=== PATIENT | female | born 1965 | race Caucasian/White ===

== ENCOUNTER 2019-12-04 11:41 | Emergency (ER) | payer OTHER ==
[~2019-12-04] VITALS: Ht 167.6 cm; Wt 77.1 kg
[2019-12-04 11:46] VITALS: BP_SYST 121
--- NOTE | 2019-12-04 12:12 | NUR ---
Patient to ER bed 03 to gown for evaluation. Side rails up.
--- NOTE | 2019-12-04 12:14 | NUR ---
Patient arrived in the ED c/o right foot pain s/p mechanical fall today. Denied any head injury or loss of consciousness. Denied any chest pain or shortness of breath. Denied any fevers, nausea, vomiting, or chills. Patient is alert and oriented x4, respirations even and unlabored, speaking in full sentences, ambulating with a steady gait. VSS, pain level 5/10. Informed of wait time. Instructed to notify ED staff for any changes in condition or worsening of symptoms. Patient verbalized understanding.
--- NOTE | 2019-12-04 12:32 | NUR ---
ER Dr. Sal at bedside examining patient.
--- NOTE | 2019-12-04 12:41 | NUR ---
X-ray done at bedside as ordered by Dr. Sal. Patient tolerated the procedure well.
--- NOTE | 2019-12-04 13:27 | NUR ---
ER Dr. Sal at bedside re-examining patient and giving discharge instructions.
[2019-12-04 13:36] VITALS: BP_SYST 121
--- NOTE | 2019-12-04 13:38 | NUR ---
Patient given written and verbal discharge instructions and verbalizes understanding. ER MD discussed with patient the results and treatment provided. Patient in stable condition. ID arm band removed. Rx of Tramadol given. Patient educated on pain management and to follow up with PMD. Pain Scale 0/10. Opportunity for questions provided and answered. Medication side effect fact sheet provided.
== END 2019-12-04 13:36 | disposition home or self-care (01) ==
LOC: SED 11:41
DX: S93.601A Unspecified sprain of right foot, initial encounter (principal); W18.39XA Other fall on same level, initial encounter; Y93.G3 Activity, cooking and baking; Y92.89 Other specified places as the place of occurrence of the external cause; Y99.8 Other external cause status
CPT/HCPCS: 99284

== ENCOUNTER 2021-02-01 18:25 | Emergency (ER) | payer OTHER ==
[~2021-02-01] VITALS: Ht 162.6 cm; Wt 81.6 kg
--- NOTE | 2021-02-01 18:26 | NUR ---
# 22 gauge angiocath placed to LAC. Use of asceptic technique. Opsite placed over site. Blood return noted. Blood for lab drawn from site. Flushed with 10 cc of normal saline. No evidence of infiltration noted. Patient tolerated well.
--- NOTE | 2021-02-01 18:26 | NUR ---
Patient to ER bed 6 to gown for evaluation. Side rails up.
--- NOTE | 2021-02-01 18:26 | NUR ---
ER Dr. Mendoza at bedside examining patient.
[2021-02-01 18:29] VITALS: BP_SYST 116
--- NOTE | 2021-02-01 18:30 | NUR ---
Pt came to ER after near syncopal episode when transferring from w/c to toilet. Pt did not fall, was not hypotensive, pt states she was not attempting to go to the restroom (no vasovagal), pt currently AO4, VSS, no distress noted, awaiting MD.
--- NOTE | 2021-02-01 18:35 | NUR ---
ER at bedside examining patient.
[2021-02-01 18:55] LABS: BASOPHILS % (AUTO) 0.4 % (0.0-2.0); EOSINOPHILS # (AUTO) 0.5 K/uL (0.0-0.4); EOSINOPHILS % (AUTO) 7.3 % (0.0-4.0); HEMATOCRIT 41.1 % (36-48); HEMOGLOBIN 13.6 g/dL (12.0-16.0); LYMPHOCYTES # (AUTO) 1.9 K/uL (1.0-5.5); MEAN CORPUSCULAR HEMOGLOBIN 28 pg (27-31); MEAN CORPUSCULAR HGB CONC 33 % (32-36); MEAN CORPUSCULAR VOLUME 84 fL (79.0-98.0); MONOCYTES # (AUTO) 0.6 K/uL (0.0-1.0); MONOCYTES % (AUTO) 8.7 % (1.7-9.3); NEUTROPHILS # (AUTO) 3.6 K/uL (1.8-7.7); NEUTROPHILS % (AUTO) 54.6 % (40.0-70.0); PLATELET COUNT (AUTO) 200 K/uL (130-430); RED BLOOD CELL COUNT(AUTO) 4.92 MIL/uL (4.2-6.2); WHITE BLOOD COUNT (AUTO) 6.5 K/uL (4.8-10.8)
--- NOTE | 2021-02-01 19:02 | NUR ---
Xray at bedside.
--- NOTE | 2021-02-01 19:07 | NUR ---
Endorsed bedside report to oncoming RN using SBAR approach for continuation of care.
[2021-02-01 19:08] LABS: CREATININE 0.72 mg/dL (0.55-1.30); POTASSIUM 3.5 mmol/L (3.5-5.1)
[2021-02-01 19:12] LABS: INR 1.1 (0.8-1.2)
[2021-02-01 19:14] LABS: ALBUMIN 3.5 g/dL (3.4-4.8); TOTAL BILIRUBIN 0.2 mg/dL (0.0-1.0)
--- NOTE | 2021-02-01 19:15 | NUR ---
Spoke with daughter on the phone regarding patient status and plan of care. All questions answered and education provided.
--- NOTE | 2021-02-01 20:00 | NUR ---
Voided in toilet with 2 nurse assist. Tanner well.
--- NOTE | 2021-02-01 20:35 | NUR ---
DR RAMON TALKED TO DAUGHTER.
[2021-02-01 22:15] VITALS: BP_SYST 125
--- NOTE | 2021-02-01 22:15 | NUR ---
Patient given written and verbal discharge instructions and verbalizes understanding. LAUREN RAMON MD discussed with patient the results and treatment provided. Patient in stable condition. ID arm band removed. IV catheter removed intact and dressing applied, no active bleeding. Patient educated on pain management and to follow up with PMD. Pain Scale . Opportunity for questions provided and answered. Medication side effect fact sheet provided.
== END 2021-02-01 22:15 | disposition home or self-care (01) ==
LOC: SED 18:25
DX: R55 Syncope and collapse (principal)
CPT/HCPCS: 36415; 70450-TC; 71045; 76376; 80053; 82550; 83605; 84484; 85025; 85610-TC; 85730-TC; 93005; 99285

== ENCOUNTER → 2021-02-20 | Outpatient (CLI) | payer OTHER | END | disposition home or self-care (01) | LOC: SMI 09:49 | DX: G31.89 Other specified degenerative diseases of nervous system (principal); R55 Syncope and collapse; R53.1 Weakness | CPT/HCPCS: 70544; 70551 ==

== ENCOUNTER 2021-03-29 15:26 | Emergency (ER) | payer MEDICARE, MEDICAID ==
[~2021-03-29] VITALS: Ht 162.6 cm; Wt 81.6 kg
[2021-03-29 15:35] VITALS: BP_SYST 112
--- NOTE | 2021-03-29 15:35 | NUR ---
Patient to ER bed 3 to gown for evaluation. Side rails up.
--- NOTE | 2021-03-29 15:36 | NUR ---
ER at bedside examining patient.
--- NOTE | 2021-03-29 15:40 | NUR ---
PT BIBA FROM HOME AFTER FALLING IN THE BATHROOM WHILE ATTEMPING TO TRANSFER SELF TO TOILET. PT STATES SHE IS WC BOUND X 10YEARS AND HAS HAD MS FOR 20+ YEARS. STATES HER LEFT FOOT IS IN PAIN, NO OBVIOUS DEFORMITY OR TRAUMA. PT IS AAOX4, V/S STABLE UPON ARRIVAL
--- NOTE | 2021-03-29 16:01 | NUR ---
PT PLACED ON BEDPAN PER REQUEST
[2021-03-29] MEDS ORDERED: IBUP-1969 PO (16:11)
[2021-03-29] MEDS ORDERED: HYDR-3917 PO (16:11)
[2021-03-29 16:27] VITALS: BP_SYST 124
--- NOTE | 2021-03-29 16:29 | NUR ---
Patient given written and verbal discharge instructions and verbalizes understanding. ER MD discussed with patient the results and treatment provided. Patient in stable condition. ID arm band removed. Rx of MOTRIN AND NORCO given. Patient educated on pain management and to follow up with PMD. Pain Scale 3/10. Opportunity for questions provided and answered. Medication side effect fact sheet provided.
== END 2021-03-29 16:29 | disposition home or self-care (01) ==
LOC: SED 15:26
DX: S93.402A Sprain of unspecified ligament of left ankle, initial encounter (principal); W18.39XA Other fall on same level, initial encounter; Y93.89 Activity, other specified; Y92.89 Other specified places as the place of occurrence of the external cause; Y99.8 Other external cause status
CPT/HCPCS: 99283

== ENCOUNTER 2021-04-11 14:12 | Emergency (ER) | payer OTHER, MEDICAID ==
[~2021-04-11] VITALS: Ht 170.2 cm; Wt 81.6 kg
[2021-04-11 14:12] VITALS: BP_SYST 101
[~2021-04-11 14:12] MED LIST: HYDR-3917 PO; IBUP-1969 PO
--- NOTE | 2021-04-11 14:12 | NUR ---
PT PLACED IN BED 3.
--- NOTE | 2021-04-11 14:13 | NUR ---
MD RAMON AT BEDSIDE ASSESSING PT.,
--- NOTE | 2021-04-11 14:21 | NUR ---
RN NOTES PT C/O OF NEAR SYNCOPE EPISODE TODAY WHILE GETTING UP FROM COUCH TO GET SOMETHING TO EAT. PT STATED SHE NEVER LOST CONCIOUSNESS AND NEVER FELL. PT IS STABLE , AWAKE , ORIENTED. HX OF MS.
[2021-04-11 14:42] LABS: BASOPHILS % (AUTO) 0.4 % (0.0-2.0); EOSINOPHILS # (AUTO) 0.3 K/uL (0.0-0.4); HEMOGLOBIN 13.4 g/dL (12.0-16.0); LYMPHOCYTES # (AUTO) 1.1 K/uL (1.0-5.5); LYMPHOCYTES % (AUTO) 19.7 % (20.5-51.5); MEAN CORPUSCULAR HEMOGLOBIN 28 pg (27-31); MEAN CORPUSCULAR HGB CONC 33 % (32-36); MEAN CORPUSCULAR VOLUME 85 fL (79.0-98.0); MONOCYTES # (AUTO) 0.4 K/uL (0.0-1.0); MONOCYTES % (AUTO) 7.4 % (1.7-9.3); NEUTROPHILS # (AUTO) 3.6 K/uL (1.8-7.7); NEUTROPHILS % (AUTO) 66.5 % (40.0-70.0); PLATELET COUNT (AUTO) 205 K/uL (130-430); RED BLOOD CELL COUNT(AUTO) 4.72 MIL/uL (4.2-6.2); RED CELL DISTRIBUTION WIDTH 13.6 % (9.0-15.0); WHITE BLOOD COUNT (AUTO) 5.4 K/uL (4.8-10.8)
[2021-04-11 14:49] LABS: ACETONE, SERUM NEGATIVE (NEGATIVE)
[2021-04-11 14:52] LABS: ANION GAP 9 (5-15); CALCIUM 8.5 mg/dL (8.4-11.0); CHLORIDE 107 mmol/L (98-107); CREATININE 0.65 mg/dL (0.55-1.30); GLUCOSE 114 mg/dL (70-99); SODIUM SERUM 142 mmol/L (136-145); UREA NITROGEN, BLOOD 9 mg/dL (8-21)
[2021-04-11 14:56] LABS: INR 1.1 (0.8-1.2); PROTHROMBIN TIME 11.6 SECS (9.5-12.5)
[2021-04-11 14:59] LABS: ALANINE AMINOTRANSFERASE 21 U/L (12-78); ALBUMIN 3.2 g/dL (3.4-4.8); ASPARTATE AMINOTRANSFERASE 13 U/L (10-37); TOTAL BILIRUBIN 0.3 mg/dL (0.0-1.0)
--- NOTE | 2021-04-11 15:23 | NUR ---
RN HAS HELP PT REPOSITION IN BED. WARM BLANKETS GIVEN. PT IS RESTING, NO DISTRESS OF ANY KIND.
--- NOTE | 2021-04-11 15:40 | NUR ---
ALL LABS RESULTS ARE BACK AND NORMAL. X RAYS NORMAL. MD RAMON PREPARE FOR DC HOME. RN HAS ASKED PT TO CALL HE FAMILY FOR P/U.
[2021-04-11 15:43] VITALS: BP_SYST 111
--- NOTE | 2021-04-11 15:45 | NUR ---
Patient given written and verbal discharge instructions and verbalizes understanding. ER MD discussed with patient the results and treatment provided. Patient in stable condition. ID arm band removed. Patient educated on pain management and to follow up with PMD. Pain Scale 0/10 []. Opportunity for questions provided and answered. Medication side effect fact sheet provided.
== END 2021-04-11 15:45 | disposition home or self-care (01) ==
LOC: SED 14:12
DX: R55 Syncope and collapse (principal); G35 Multiple sclerosis; Z79.899 Other long term (current) drug therapy
CPT/HCPCS: 36415; 71045; 80053; 82009; 82550; 83605; 84484; 85025; 85610-TC; 85730-TC; 93005; 99285

== ENCOUNTER 2021-08-27 15:17 | Emergency (ER) | payer BC, MEDICAID ==
[~2021-08-27] VITALS: Ht 162.6 cm; Wt 90.7 kg
[2021-08-27 15:17] VITALS: BP_SYST 113
[~2021-08-27 15:17] MED LIST changes: +BACL20TA PO; +ESCI10TA PO; +LIP20 PO
--- NOTE | 2021-08-27 15:17 | NUR ---
BROUGHT IN BY [facility], PLACED IN BED #2 AND TRIAGED. REPORT GIVEN TO OSCAR
--- NOTE | 2021-08-27 15:19 | NUR ---
ER at bedside examining patient.
--- NOTE | 2021-08-27 15:22 | NUR ---
pt. bib ACLS post syncope episode at home, pt. states she was walking to get some dates to eat and her daughter yelled to her from upstairs that she did not look well and had her sit as she called 911, pt. has full recollection of entire event, denies any pain, states feels weak, weakness is her only complaint, was reported by EMS she was hypotensive, BP on arrival 113/43 P=68.
[2021-08-27] MEDS ORDERED: NACL 0.9% 1,000 ML IV ONE (15:30)
--- NOTE | 2021-08-27 15:41 | NUR ---
radiology at bedside for chest xray
[2021-08-27 16:02] LABS: BASOPHILS % (AUTO) 0.6 % (0.0-2.0); EOSINOPHILS # (AUTO) 0.3 K/uL (0.0-0.4); EOSINOPHILS % (AUTO) 7.5 % (0.0-4.0); HEMATOCRIT 40.8 % (36-48); HEMOGLOBIN 13.5 g/dL (12.0-16.0); LYMPHOCYTES # (AUTO) 1.7 K/uL (1.0-5.5); LYMPHOCYTES % (AUTO) 35.7 % (20.5-51.5); MEAN CORPUSCULAR HEMOGLOBIN 28 pg (27-31); MEAN CORPUSCULAR HGB CONC 33 % (32-36); MEAN CORPUSCULAR VOLUME 84 fL (79.0-98.0); MONOCYTES # (AUTO) 0.3 K/uL (0.0-1.0); MONOCYTES % (AUTO) 7.5 % (1.7-9.3); NEUTROPHILS # (AUTO) 2.2 K/uL (1.8-7.7); NEUTROPHILS % (AUTO) 48.7 % (40.0-70.0); PLATELET COUNT (AUTO) 219 K/uL (130-430); RED BLOOD CELL COUNT(AUTO) 4.86 MIL/uL (4.2-6.2); RED CELL DISTRIBUTION WIDTH 14.9 % (9.0-15.0); WHITE BLOOD COUNT (AUTO) 4.6 K/uL (4.8-10.8)
[2021-08-27 16:19] LABS: CALCIUM 9.6 mg/dL (8.4-11.0); CREATININE 0.71 mg/dL (0.55-1.30); POTASSIUM 3.8 mmol/L (3.5-5.1)
[2021-08-27 16:32] LABS: ALBUMIN 3.6 g/dL (3.4-4.8); TOTAL BILIRUBIN 0.3 mg/dL (0.0-1.0)
--- NOTE | 2021-08-27 18:48 | NUR ---
pt. was incontinent of urine, pericare done, diaper given for transfer home, IV dc'd, pt. signed discharge paper work waiting for daughter to bring wheelchair for ride home, dinner given per request
[2021-08-27 19:06] VITALS: BP_SYST 116
--- NOTE | 2021-08-27 19:07 | NUR ---
Patient given written and verbal discharge instructions and verbalizes understanding. Dr. Martinez discussed with patient the results and treatment provided. Patient in stable condition. ID arm band removed. IV catheter removed intact and dressing applied, no active bleeding. Patient educated to follow up with PMD. Pain Scale 0. Opportunity for questions provided and answered.
== END 2021-08-27 19:07 | disposition home or self-care (01) ==
LOC: SED 15:17
DX: R55 Syncope and collapse (principal); Z79.899 Other long term (current) drug therapy
CPT/HCPCS: 36415; 71045; 80053; 83605; 84484; 85025; 87040; 93005; 96360; 99285; J7030

== ENCOUNTER 2022-07-29 16:00 | Inpatient (IN) | payer BC, MEDICAID ==
[~2022-07-29] VITALS: Ht 170.2 cm; Wt 81.6 kg
[2022-07-29 16:03] VITALS: BP_SYST 127
--- NOTE | 2022-07-29 16:03 | NUR ---
Placed in room 07 . Placed on cardiac rn, blood pressure machine and pulse oximeter. To gown for exam. Side rails up.
--- NOTE | 2022-07-29 16:26 | NUR ---
PT BIBA AWAKE AND ALERT AOX4. PT C/O COUGH FLU LIKE SYMPTOM FOR X2 DAYS. PT STATES FEELING GENERALIZED WEAKNESS. NO SOB OR DISTRESS. PT DENIES VOMITING AND DIAHREA, BUT SLIGHTLY NEAUOS. PT HAS HX OF MS, AND NON ANBULATORY.
--- NOTE | 2022-07-29 16:29 | NUR ---
MD DR KAPOOR AT BEDSIDE
[2022-07-29 16:44] LABS: BILIRUBIN,URINE NEGATIVE (NEGATIVE); BLOOD, URINE 2+ (NEGATIVE); CLARITY/URINE SL CLOUDY (CLEAR); COLOR,URINE YELLOW (YELLOW); GLUCOSE,URINE NEGATIVE (NEGATIVE); KETONES,URINE NEGATIVE (NEGATIVE); LEUKOCYTE ESTERASE ,URINE 1+ (NEGATIVE); NITRITE, URINE POSITIVE (NEGATIVE); PH,URINE 8.5 (5.0-8.0); PROTEIN URINE NEGATIVE (NEGATIVE); UROBILINOGEN,URINE 0.2 (0.2-1.0)
[2022-07-29 16:49] LABS: BACTERIA,URINE FEW /HPF (None Seen); MUCUS,URINE None Seen /LPF (None Seen)
[2022-07-29 16:56] LABS: BASOPHILS % (AUTO) 0.4 % (0.0-2.0); EOSINOPHILS % (AUTO) 0.4 % (0.0-4.0); HEMATOCRIT 38.5 % (36-48); HEMOGLOBIN 12.9 g/dL (12.0-16.0); LYMPHOCYTES # (AUTO) 0.6 K/uL (1.0-5.5); MEAN CORPUSCULAR HEMOGLOBIN 28 pg (27-31); MEAN CORPUSCULAR HGB CONC 33 % (32-36); MEAN CORPUSCULAR VOLUME 83 fL (79.0-98.0); MONOCYTES # (AUTO) 0.8 K/uL (0.0-1.0); MONOCYTES % (AUTO) 11.4 % (1.7-9.3); NEUTROPHILS # (AUTO) 5.6 K/uL (1.8-7.7); NEUTROPHILS % (AUTO) 78.8 % (40.0-70.0); PLATELET COUNT (AUTO) 192 K/uL (130-430); RED BLOOD CELL COUNT(AUTO) 4.61 MIL/uL (4.2-6.2); RED CELL DISTRIBUTION WIDTH 14.2 % (9.0-15.0); WHITE BLOOD COUNT (AUTO) 7.1 K/uL (4.8-10.8)
[2022-07-29] MEDS ORDERED: cefTRIAXone 1 GM IVPB PREMIX 50 ML IV ONE (17:00)
[2022-07-29 17:12] LABS: ANION GAP 6 (5-15); CALCIUM 8.9 mg/dL (8.4-11.0); CHLORIDE 104 mmol/L (98-107); CREATININE 0.57 mg/dL (0.55-1.30); GLUCOSE 101 mg/dL (70-99); UREA NITROGEN, BLOOD 9 mg/dL (8-21)
[2022-07-29 17:21] LABS: ALANINE AMINOTRANSFERASE 17 U/L (12-78); ALBUMIN 3.5 g/dL (3.4-4.8); ASPARTATE AMINOTRANSFERASE 12 U/L (10-37); TOTAL BILIRUBIN 0.3 mg/dL (0.0-1.0)
[2022-07-29 17:23] LABS: GFR AFRICAN AMERICAN 140 mL/min (>90)
--- NOTE | 2022-07-29 17:43 | NUR ---
Admit bed requested Patient will be admitted to care of . Admitted to M/S unit. Diagnosis UTI Inpatient (Yes or No) Y Observation (Yes or No) N Orientation concerns or request close to nursing station (Yes or No) N Covid Status NEG On vent or bipap N Isolation requirements N Needs a sitter N From Home (Yes or if No enter name of facility) Y Requires Dialysis (Yes or No) N Med Rec Completed (Yes of No) Y
[2022-07-29] MEDS: NACL 0.9% 1,000 ML IV SCH (17:49)
--- NOTE | 2022-07-29 17:52 | NUR ---
Medication reconciliation completed with information provided by PATIENT AT BEDSIDE. Any prior medication reconciliation on file was reviewed and corrected.
[2022-07-29 18:20] VITALS: BP_SYST 107
--- NOTE | 2022-07-29 18:20 | NUR ---
ADMISSION: The patient, GABY SEQUEIRA, 56 y/o, F admitted by JUJU LOPEZ DO, was given written information regarding hospital policies, unit procedures and contact persons. Oriented to call light.Routine vital signs taken,afebrile.
--- NOTE | 2022-07-29 18:33 | NUR ---
Patient will be admitted to care of DR LOPEZ. Admitted to [facility] unit. Will go to room 125A. Belongings list completed. Complete and up to date summary report printed. SBAR report to be given at bedside with opportunity for questions.
[2022-07-29] MEDS ORDERED: DOCUSATE SODIUM 100 MG CAPSULE PO PRN (19:15)
[2022-07-29] MEDS ORDERED: LORazepam 2 MG/ML VIAL IVP PRN (19:15)
[2022-07-29] MEDS ORDERED: HYDROcodone/ACETAMIN 5-325 MG TAB (NORCO/ VICODIN) PO PRN (19:15)
[2022-07-29] MEDS ORDERED: POTASSIUM CHLORIDE 20 MEQ TAB.PRT.SR PO PRN (19:15)
[2022-07-29] MEDS ORDERED: MAGNESIUM SULFATE 50 ML IV PRN (19:15)
[2022-07-29] MEDS ORDERED: ACETAMINOPHEN 325 MG TABLET PO PRN ×2 (19:15→19:30)
[2022-07-29] MEDS ORDERED: MUPIROCIN 2% TOPICAL OINTMENT 22 GM NS PRN (19:15)
[2022-07-29] MEDS ORDERED: ONDANSETRON HCL 4 MG/2 ML VIAL IVP PRN (19:15)
--- NOTE | 2022-07-29 19:29 | NUR ---
END OF SHIFT: ENDORSED TO NIGHT NURSE RUSTY.NO ACUTE DISTRESS.
[2022-07-29 20:00] VITALS: BP_SYST 118
--- NOTE | 2022-07-29 20:30 | NUR ---
Opening Patient resting in bed, unlabored breathing on room air. No complaint of pain. Given some jello and juice. IV fluids infusing per order.
[2022-07-30] VITALS: BP_SYST 143
--- NOTE | 2022-07-30 04:25 | NUR ---
Assisted patient with repositioning with pillow support. Patient complained of discomfort but refused any pain medication at this time. Incontinence care provided and linens changed. Call light in reach.
--- NOTE | 2022-07-30 07:11 | NUR ---
Patient refused labs this morning.
[2022-07-30] MEDS: NACL 0.9% 1,000 ML IV SCH ×2 (08:03→22:21)
[2022-07-30] MEDS: ATORVASTATIN 20 MG TABLET PO SCH (08:19)
[2022-07-30 08:20] VITALS: BP_SYST 134
--- NOTE | 2022-07-30 08:20 | NUR ---
Scheduled medication given per order. Patient repositioned; stable at this time, resting comfortably in bed.
[2022-07-30] MEDS ORDERED: BACLOFEN 10 MG TABLET PO SCH ×2 (09:00→12:07)
[2022-07-30] MEDS ORDERED: ESCITALOPRAM OXALATE 10 MG TABLET PO SCH (09:00)
[2022-07-30] MEDS ORDERED: CITALOPRAM HYDROBROMIDE 20 MG TABLET PO SCH ×2 (09:00→12:08)
--- NOTE | 2022-07-30 09:56 | NUR ---
Discharge Planning: GOLDY faxed pt referral to [facility] [phone] GOLDY to follow up Addendum: 07/30/22 at 1427 by Keiry Lewis DP Daughter of patient would her to be placed at [facility]. GOLDY made CM aware.
[2022-07-30] MEDS ORDERED: cefTRIAXone 1 GM in D5W 50 ML IV SCH ×2 (10:00→17:00)
--- NOTE | 2022-07-30 11:00 | NUR ---
Patient resting comfortably in bed with Dr. Oliva at bedside. Patient stable.
--- NOTE | 2022-07-30 11:11 | NUR ---
CONSULTATION PAGED REASON FOR CONSULTATION:MULTIPLE SCLEROSIS WAS CONSULT CALLED?Y PERSON WHO WAS NOTIFIED:TEXT MESSAGED ARTURO BAUTISTA CONSULTING PHYSICIAN:ARTURO BAUTISTA AUTO RESEARCH ENGINEER SPECIALTY:NEURO AUTO RESEARCH ENGINEER PHONE NUMBER:[phone] REQUESTING PHYSICIAN:CHADWICK COHEN
--- NOTE | 2022-07-30 11:12 | NUR ---
Ordered medication given. Gown and chux pads changed. Patient stable at this time.
[2022-07-30 12:00] VITALS: BP_SYST 123
[2022-07-30] MEDS ORDERED: BACL10TA PO (12:06)
[2022-07-30] MEDS ORDERED: ESCI20TA38 PO (12:06)
--- NOTE | 2022-07-30 14:13 | NUR ---
Spoke w/ patient's daughter @ [phone]. She stated her mother is having an exacerbation of her MS. The daughter is her rn complex care, she is currently unable to care for her mother and would like her to be placed at [facility] until she is feeling better and the daughter is able to care for her at home. I explained that the MD would need to see her mother and determine if she has medical necessity for SNF placement. We will let her know the MD's plan for her mother's DC.
[2022-07-30 15:29] LABS: BASOPHILS % (AUTO) 0.2 % (0.0-2.0); EOSINOPHILS % (AUTO) 0.4 % (0.0-4.0); HEMATOCRIT 35.8 % (36-48); HEMOGLOBIN 12.3 g/dL (12.0-16.0); LYMPHOCYTES # (AUTO) 0.9 K/uL (1.0-5.5); LYMPHOCYTES % (AUTO) 12.8 % (20.5-51.5); MEAN CORPUSCULAR HEMOGLOBIN 28 pg (27-31); MEAN CORPUSCULAR HGB CONC 34 % (32-36); MEAN CORPUSCULAR VOLUME 82 fL (79.0-98.0); MONOCYTES # (AUTO) 0.9 K/uL (0.0-1.0); MONOCYTES % (AUTO) 12.9 % (1.7-9.3); NEUTROPHILS # (AUTO) 5.2 K/uL (1.8-7.7); NEUTROPHILS % (AUTO) 73.7 % (40.0-70.0); PLATELET COUNT (AUTO) 176 K/uL (130-430); RED BLOOD CELL COUNT(AUTO) 4.34 MIL/uL (4.2-6.2); RED CELL DISTRIBUTION WIDTH 14.2 % (9.0-15.0)
[2022-07-30 15:45] LABS: CREATININE 0.54 mg/dL (0.55-1.30)
[2022-07-30] MEDS: BACLOFEN 10 MG TABLET PO SCH ×2 (15:49→22:59)
--- NOTE | 2022-07-30 15:51 | NUR ---
Scheduled medication given per order. Patient stable with daughter, Bryce at bedside.
[2022-07-30 16:00] VITALS: BP_SYST 120
--- NOTE | 2022-07-30 17:30 | NUR ---
Scheduled IV abx given per order. Patient stable; resting comfortably in bed with Dr. Aline Ashby at bedside.
--- NOTE | 2022-07-30 18:50 | NUR ---
Patient stable throughout shift.
[2022-07-30 19:00] VITALS: BP_SYST 116; BP_SYST 120
--- NOTE | 2022-07-30 19:15 | NUR ---
change of shift.pt.presents quiescent affect;calm,resting.pt.presents lower extremity weakness.pt.ordered bedrest activity pt.presents iv access location lt.forearm.general status stable.respiratory status stable;unlabored@room air.call light/telephone placed w/in access of the pt.
--- NOTE | 2022-07-30 19:25 | NUR ---
OPENING NOTE PT IS LYING IN BED WITH EYES. NO APPARENT SIGNS OF DISTRESS NOTED AT THIS TIME. BED IN LOWEST POSITION WITH FALL AND SAFETY PRECAUTIONS IN PLACE. CALL LIGHT IS WITHIN REACH. IV FLUIDS RUNNING ORDERED. ALL NEEDS MET AT THIS TIME
--- NOTE | 2022-07-30 20:00 | NUR ---
pt.assessed.v/s assessed values wnl.no c/o pain,nausea.pt.apprised that snacks/beverages are available w/in the shift.no requests posited this hour.pt.repositioned.iv access intact.call light/telephone w/in access of the pt.
--- NOTE | 2022-07-30 21:00 | NUR ---
2100p medications administered.pt.capable to ingest the po medications w/out difficulty.no c/o pain,nausea.no request posited@this hour.
--- NOTE | 2022-07-30 22:00 | NUR ---
pt.assessed.pt.quiescent;calm.no c/o pain,nausea.no requests posited@this hour.iv access intact.pt.repositioned. call light/telephone w/in access of the pt.
[2022-07-30] MEDS: ZOLPIDEM TARTRATE 5 MG TABLET PO PRN (23:00)
[2022-07-31] VITALS: BP_SYST 113
--- NOTE | 2022-07-31 | NUR ---
pt.assessed.v/s assessed values wnl.no c/o pain,nausea.iv access intact.pt.repositioned.call light/telephone placed w/in access of the pt.
--- NOTE | 2022-07-31 02:00 | NUR ---
pt.assESSED.pt.quiescent;somnolent.per flacc pain mgx pt.absent facial grimaCES/BODY PosTUrING.IV ACcEss IntaCT IV FlUIDS INFuSiNG.PT.ASSEssed FOr cleanliess.pt.REpositIONED.CALl lIGHT/telephone placed w/in access OF THe PT.
[2022-07-31] MEDS: NACL 0.9% 1,000 ML IV SCH (03:30)
--- NOTE | 2022-07-31 04:00 | NUR ---
pt.assessed.pt.quiescent;somnolent.per flacc pain mgx pt.absent facial grimaces/body posturing.pt.assessed for cleanliness.pt.repositioned.call light/telephone placed w/in access of the pt.
--- NOTE | 2022-07-31 04:20 | NUR ---
ROUNDS PT LYING IN BED WITH EYES CLOSED. NO APPARENT DISTRESS NOTED AT THIS TIME. BED IN LOWEST POSITION WITH FALL AND SAFETY PRECAUTIONS IN PLACE. CALL LIGHT WITHIN REACH. IV FLUIDS RUNNING ORDERED.
--- NOTE | 2022-07-31 06:05 | NUR ---
pt.assessed.pt.quiescent;somnolent.per flacc pain mgx pt.absent facial grimaces/body posturing.pt.assessed for cleanliness.pt.repositioned.call light/telephone placed w/in access of the pt.
--- NOTE | 2022-07-31 06:38 | NUR ---
CLOSING NOTE PT IS LYING IN BED WITH EYES CLOSED. NO APPARENT SIGNS OF DISTRESS NOTED AT HIS TIME. BED IN LOWEST POSITION WITH FALL AND SAFETY PRECAUTIONS IN PLACE. CALL LIGHT WITHIN REACH. PETERS DRAINING TO GRAVITY. IV FLUIDS RUNNING ORDERED.
[2022-07-31 07:13] LABS: CREATININE 0.48 mg/dL (0.55-1.30)
[2022-07-31 07:16] LABS: BASOPHILS % (AUTO) 0.4 % (0.0-2.0); EOSINOPHILS # (AUTO) 0.2 K/uL (0.0-0.4); EOSINOPHILS % (AUTO) 4.3 % (0.0-4.0); HEMATOCRIT 36.3 % (36-48); HEMOGLOBIN 12.2 g/dL (12.0-16.0); LYMPHOCYTES # (AUTO) 1.1 K/uL (1.0-5.5); LYMPHOCYTES % (AUTO) 23.3 % (20.5-51.5); MEAN CORPUSCULAR HEMOGLOBIN 28 pg (27-31); MEAN CORPUSCULAR HGB CONC 34 % (32-36); MEAN CORPUSCULAR VOLUME 83 fL (79.0-98.0); MONOCYTES # (AUTO) 0.7 K/uL (0.0-1.0); MONOCYTES % (AUTO) 15.3 % (1.7-9.3); NEUTROPHILS # (AUTO) 2.7 K/uL (1.8-7.7); NEUTROPHILS % (AUTO) 56.7 % (40.0-70.0); PLATELET COUNT (AUTO) 173 K/uL (130-430); RED BLOOD CELL COUNT(AUTO) 4.39 MIL/uL (4.2-6.2); RED CELL DISTRIBUTION WIDTH 14.1 % (9.0-15.0); WHITE BLOOD COUNT (AUTO) 4.7 K/uL (4.8-10.8)
[2022-07-31 07:35] VITALS: BP_SYST 103
--- NOTE | 2022-07-31 07:35 | NUR ---
OPENING NOTE Patient in bed resting. No pain, no SOB, no distress noted at this time. IV to Left hand 22G patent and on infusion pump. Patient is A/O x 4 East [place]orese speaking. Patient has periwick which is draining yellow urine. All needs met, bed is locked in lowest position, call light within reach. Will continue to monitor.
[2022-07-31] MEDS: CITALOPRAM HYDROBROMIDE 20 MG TABLET PO SCH (08:27)
[2022-07-31] MEDS: BACLOFEN 10 MG TABLET PO SCH ×3 (08:27→22:38)
[2022-07-31] MEDS: ATORVASTATIN 20 MG TABLET PO SCH (08:27)
--- NOTE | 2022-07-31 10:37 | NUR ---
Pt refused PT eval today.
--- NOTE | 2022-07-31 12:10 | NUR ---
Rounds Patient in bed resting, MD Rangel at bedside. No pain, no SOB, no distress noted at this time. All needs met, bed is locked in lowest position, call light within reach. Will continue to monitor.
[2022-07-31 14:11] VITALS: BP_SYST 127
--- NOTE | 2022-07-31 17:09 | NUR ---
Patient's IV became dislodged and nurse tried twice for access. Patient then stated that she does not want to be poked further and wishes to not have IV access. Placed a call to MD Rangel to inform him and to see if he wants patient to lara atb to PO. MD changed orders, which were carried out.
[2022-07-31 18:32] VITALS: BP_SYST 111
--- NOTE | 2022-07-31 18:54 | NUR ---
CLOSING NOTE Patient in bed resting. No pain, no SOB, no distress noted at this time. IV to Left hand 22G patent and on infusion pump. Patient is A/O x 4 Spanish speaking. Patient has periwick which is draining yellow urine. All needs met, bed is locked in lowest position, call light within reach. Will endorse to nightshift nurse.
[2022-07-31 20:00] VITALS: BP_SYST 117
[2022-07-31] MEDS: ZOLPIDEM TARTRATE 5 MG TABLET PO PRN (22:38)
[2022-07-31] MEDS: cephALEXin 500 MG CAPSULE PO SCH (22:38)
[2022-08-01 00:40] VITALS: BP_SYST 119
[2022-08-01 07:55] LABS: BASOPHILS % (AUTO) 0.5 % (0.0-2.0); EOSINOPHILS # (AUTO) 0.5 K/uL (0.0-0.4); EOSINOPHILS % (AUTO) 10.9 % (0.0-4.0); HEMATOCRIT 36.6 % (36-48); HEMOGLOBIN 12.4 g/dL (12.0-16.0); LYMPHOCYTES # (AUTO) 1.3 K/uL (1.0-5.5); LYMPHOCYTES % (AUTO) 28.6 % (20.5-51.5); MEAN CORPUSCULAR HEMOGLOBIN 28 pg (27-31); MEAN CORPUSCULAR HGB CONC 34 % (32-36); MEAN CORPUSCULAR VOLUME 83 fL (79.0-98.0); MONOCYTES # (AUTO) 0.7 K/uL (0.0-1.0); MONOCYTES % (AUTO) 14.9 % (1.7-9.3); NEUTROPHILS % (AUTO) 45.1 % (40.0-70.0); PLATELET COUNT (AUTO) 201 K/uL (130-430); RED BLOOD CELL COUNT(AUTO) 4.43 MIL/uL (4.2-6.2); WHITE BLOOD COUNT (AUTO) 4.5 K/uL (4.8-10.8)
[2022-08-01 08:37] LABS: CALCIUM 8.4 mg/dL (8.4-11.0); CREATININE 0.51 mg/dL (0.55-1.30)
[2022-08-01 08:51] VITALS: BP_SYST 116
[2022-08-01] MEDS: BACLOFEN 10 MG TABLET PO SCH ×3 (08:53→22:03)
[2022-08-01] MEDS: cephALEXin 500 MG CAPSULE PO SCH ×2 (08:53→22:03)
[2022-08-01] MEDS: ATORVASTATIN 20 MG TABLET PO SCH (08:53)
[2022-08-01] MEDS: CITALOPRAM HYDROBROMIDE 20 MG TABLET PO SCH (08:53)
[2022-08-01] MEDS ORDERED: CEPH-548 PO (09:17)
[2022-08-01 11:24] VITALS: BP_SYST 125
[2022-08-01 15:32] VITALS: BP_SYST 122
[2022-08-01 20:51] VITALS: BP_SYST 112
[2022-08-02 00:10] VITALS: BP_SYST 110
[2022-08-02 07:51] LABS: BASOPHILS % (AUTO) 0.7 % (0.0-2.0); EOSINOPHILS # (AUTO) 0.6 K/uL (0.0-0.4); EOSINOPHILS % (AUTO) 11.3 % (0.0-4.0); HEMATOCRIT 36.8 % (36-48); HEMOGLOBIN 12.5 g/dL (12.0-16.0); LYMPHOCYTES # (AUTO) 1.3 K/uL (1.0-5.5); LYMPHOCYTES % (AUTO) 27.2 % (20.5-51.5); MEAN CORPUSCULAR HEMOGLOBIN 28 pg (27-31); MEAN CORPUSCULAR HGB CONC 34 % (32-36); MEAN CORPUSCULAR VOLUME 82 fL (79.0-98.0); MONOCYTES # (AUTO) 0.6 K/uL (0.0-1.0); MONOCYTES % (AUTO) 12.9 % (1.7-9.3); NEUTROPHILS # (AUTO) 2.4 K/uL (1.8-7.7); NEUTROPHILS % (AUTO) 47.9 % (40.0-70.0); PLATELET COUNT (AUTO) 231 K/uL (130-430); RED BLOOD CELL COUNT(AUTO) 4.47 MIL/uL (4.2-6.2); RED CELL DISTRIBUTION WIDTH 13.6 % (9.0-15.0); WHITE BLOOD COUNT (AUTO) 4.9 K/uL (4.8-10.8)
[2022-08-02 08:24] LABS: CALCIUM 8.8 mg/dL (8.4-11.0); CREATININE 0.52 mg/dL (0.55-1.30)
[2022-08-02] MEDS: cephALEXin 500 MG CAPSULE PO SCH ×2 (09:14→20:54)
[2022-08-02] MEDS: BACLOFEN 10 MG TABLET PO SCH ×3 (09:15→20:54)
[2022-08-02] MEDS: ATORVASTATIN 20 MG TABLET PO SCH (09:15)
[2022-08-02 09:16] VITALS: BP_SYST 133
[2022-08-02] MEDS: CITALOPRAM HYDROBROMIDE 20 MG TABLET PO SCH (09:16)
--- NOTE | 2022-08-02 09:40 | NUR ---
Discharge Planning: DCP faxed pt referral for SNF to [facility] [phone], family request [facility] patient has been there before. DCP to follow up Addendum: 08/02/22 at 1553 by Keiry Lewis [phone] pending auth from YOANNA Montes.
[2022-08-02 16:40] VITALS: BP_SYST 112
[2022-08-02 18:58] VITALS: BP_SYST 112
[2022-08-02 20:55] VITALS: BP_SYST 133
--- NOTE | 2022-08-02 21:31 | NUR ---
Patient is discharged to home via private vehicle. Daughter picked her up. Patient's alert, oriented, and no respiratory distress noted. Discharged instruction is given with Home Health phone number. Patient's aware that [facility] will contact her for start of care. Phone number for [facility] provided to the patient. Patient's vitals are stable, patient denies any pain or discomfort.
--- NOTE | 2022-08-03 12:03 | NUR ---
Discharge Planning: DCP faxed pt referral to [facility] P#[phone], DCP spoke with Hien and care would resume.
== END 2022-08-02 23:23 | disposition home health service (06) | DRG 58 ==
LOC: SED 16:00 → SMU 17:42
PROVIDERS: ADMIT Internal Medicine; ATTEND Internal Medicine
DX: G35 Multiple sclerosis (principal); R53.2 Functional quadriplegia; N39.0 Urinary tract infection, site not specified; E78.00 Pure hypercholesterolemia, unspecified; E78.5 Hyperlipidemia, unspecified; Z20.822 Contact with and (suspected) exposure to COVID-19; R53.81 Other malaise; F32.A Depression, unspecified; Z99.3 Dependence on wheelchair
CPT/HCPCS: 36415; 71045; 80048; 80053; 80061; 81000; 83036; 83605; 83735; 84484; 85025; 87040; 87086; 93005; 96365; 97163-GP; 99285; J0696; J7030; J7060

== ENCOUNTER 2023-09-24 10:02 | Inpatient (IN) | payer BC, MEDICAID ==
[~2023-09-24] VITALS: Ht 152.4 cm; Wt 90.7 kg
[~2023-09-24 10:02] MED LIST changes: +BACL10TA PO; -BACL20TA PO; +CEPH-548 PO; -ESCI10TA PO; +ESCI20TA38 PO; -HYDR-3917 PO; -IBUP-1969 PO
[2023-09-24 10:03] VITALS: BP_SYST 130; PULSE 64; RESP 18; TEMP 97.4; O2SAT 95
[2023-09-24] MEDS ORDERED: NACL 0.9% 1,000 ML IV ONE (10:15)
[2023-09-24 10:40] LABS: BASOPHILS % (AUTO) 0.3 % (0.0-2.0); EOSINOPHILS # (AUTO) 0.1 K/uL (0.0-0.4); EOSINOPHILS % (AUTO) 1.2 % (0.0-4.0); HEMATOCRIT 38.8 % (36-48); HEMOGLOBIN 12.8 g/dL (12.0-16.0); LYMPHOCYTES # (AUTO) 0.5 K/uL (1.0-5.5); LYMPHOCYTES % (AUTO) 8.9 % (20.5-51.5); MEAN CORPUSCULAR HEMOGLOBIN 27 pg (27-31); MEAN CORPUSCULAR HGB CONC 33 % (32-36); MEAN CORPUSCULAR VOLUME 82 fL (79.0-98.0); MONOCYTES # (AUTO) 0.8 K/uL (0.0-1.0); MONOCYTES % (AUTO) 13.9 % (1.7-9.3); NEUTROPHILS # (AUTO) 4.1 K/uL (1.8-7.7); NEUTROPHILS % (AUTO) 75.7 % (40.0-70.0); PLATELET COUNT (AUTO) 205 K/uL (130-430); RED BLOOD CELL COUNT(AUTO) 4.74 MIL/uL (4.2-6.2); RED CELL DISTRIBUTION WIDTH 14.6 % (9.0-15.0); WHITE BLOOD COUNT (AUTO) 5.4 K/uL (4.8-10.8)
[2023-09-24 11:06] LABS: ANION GAP 7 (5-15); CARBON DIOXIDE 27 mmol/L (23-29); CHLORIDE 102 mmol/L (98-107); CREATININE 0.58 mg/dL (0.55-1.30); GFR AFRICAN AMERICAN 136 mL/min (>90); GLUCOSE 121 mg/dL (74-106); POTASSIUM 3.6 mmol/L (3.5-5.1); SODIUM SERUM 136 mmol/L (136-145); UREA NITROGEN, BLOOD 9 mg/dL (8-21)
[2023-09-24 11:07] LABS: GFR NON AFRICAN-AMERICAN 113 mL/min (>90)
[2023-09-24 13:46] LABS: INFLUENZA TYPE A Negative (NEGATIVE); INFLUENZA TYPE B NEGATIVE (NEGATIVE)
[2023-09-24 14:00] VITALS: PULSE 64; O2SAT 99
[2023-09-24] MEDS ORDERED: HYDROcodone/ACETAMIN 5-325 MG TAB (NORCO/ VICODIN) PO PRN (14:00)
[2023-09-24] MEDS ORDERED: ACETAMINOPHEN 325 MG TABLET PO PRN ×2 (14:00→14:15)
[2023-09-24] MEDS ORDERED: ONDANSETRON HCL 4 MG/2 ML VIAL IVP PRN (14:00)
[2023-09-24 14:01] LABS: BILIRUBIN,URINE NEGATIVE (NEGATIVE); BLOOD, URINE 2+ (NEGATIVE); CLARITY/URINE CLOUDY (CLEAR); COLOR,URINE YELLOW (YELLOW); GLUCOSE,URINE NEGATIVE (NEGATIVE); KETONES,URINE NEGATIVE (NEGATIVE); LEUKOCYTE ESTERASE ,URINE TRACE (NEGATIVE); NITRITE, URINE NEGATIVE (NEGATIVE); PH,URINE 7.5 (5.0-8.0); PROTEIN URINE NEGATIVE (NEGATIVE); UROBILINOGEN,URINE 0.2 (0.2-1.0)
[2023-09-24 14:14] LABS: BACTERIA,URINE FEW /HPF (None Seen); URINE AMORPHOUS PHOSPHATES 1+ /HPF (None Seen)
[2023-09-24] MEDS ORDERED: ONDANSETRON HCL 4 MG/2 ML VIAL IVP ONE (14:15)
[2023-09-24] MEDS ORDERED: NON-FORMULARY MEDICATION (Escitalopram Oxalate 20 MG) PO SCH (14:15)
[2023-09-24] MEDS ORDERED: ASCORBIC ACID 500 MG TABLET PO ONE (14:15)
[2023-09-24] MEDS ORDERED: KETOROLAC TROMETHAMINE 30 MG VIAL IVP ONE (14:15)
[2023-09-24] MEDS ORDERED: DEXAMETHASONE SOD PHOSPHATE 4 MG/ML VIAL IVP ONE (14:15)
[2023-09-24] MEDS ORDERED: MORPHINE 2 MG/ML INJ. SYRINGE IVP ONE (14:15)
[2023-09-24] MEDS ORDERED: ENOXAPARIN SODIUM 40 MG/0.4 ML SYRINGE SUBCUT ONE (14:15)
[2023-09-24] MEDS ORDERED: CITALOPRAM HYDROBROMIDE 20 MG TABLET PO ONE (14:30)
[2023-09-24] MEDS ORDERED: CHOLECALCIFEROL (VITAMIN D3) 2,000 UNIT TABLET PO ONE (14:30)
[2023-09-24 14:47] VITALS: O2SAT 98
[2023-09-24] MEDS: IPRATROPIUM BROM 0.5 MG/2.5 ML VIAL.NEB (ATROVENT) INH SCH ×3 (14:47→23:59)
[2023-09-24] MEDS: HYDROcodone/ACETAMIN 5-325 MG TAB (NORCO/ VICODIN) PO PRN (18:18)
[2023-09-24] MEDS ORDERED: ENOXAPARIN SODIUM 40 MG/0.4 ML SYRINGE ONE (18:43)
[2023-09-24 19:30] VITALS: O2SAT 95
[2023-09-24] MEDS: ASCORBIC ACID 500 MG TABLET PO SCH (22:14)
[2023-09-24] MEDS: FAMOTIDINE 20 MG TABLET PO SCH (22:14)
[2023-09-24 23:30] VITALS: O2SAT 95
[2023-09-25 03:30] VITALS: O2SAT 94
[2023-09-25] MEDS: IPRATROPIUM BROM 0.5 MG/2.5 ML VIAL.NEB (ATROVENT) INH SCH ×6 (03:45→23:56)
[2023-09-25 07:38] LABS: ALBUMIN 3.2 g/dL (3.4-4.8); CALCIUM 8.3 mg/dL (8.4-11.0); CREATININE 0.5 mg/dL (0.55-1.30); POTASSIUM 3.7 mmol/L (3.5-5.1); TOTAL BILIRUBIN 0.2 mg/dL (0.0-1.0); TOTAL PROTEIN, SERUM 6.5 g/dL (6.4-8.3)
[2023-09-25 08:52] LABS: BASOPHILS % (AUTO) 0.3 % (0.0-2.0); EOSINOPHILS % (AUTO) 0.4 % (0.0-4.0); HEMATOCRIT 38.8 % (36-48); HEMOGLOBIN 12.9 g/dL (12.0-16.0); LYMPHOCYTES # (AUTO) 0.7 K/uL (1.0-5.5); LYMPHOCYTES % (AUTO) 14.4 % (20.5-51.5); MEAN CORPUSCULAR HEMOGLOBIN 27 pg (27-31); MEAN CORPUSCULAR HGB CONC 33 % (32-36); MEAN CORPUSCULAR VOLUME 82 fL (79.0-98.0); MONOCYTES # (AUTO) 0.8 K/uL (0.0-1.0); MONOCYTES % (AUTO) 15.3 % (1.7-9.3); NEUTROPHILS # (AUTO) 3.6 K/uL (1.8-7.7); NEUTROPHILS % (AUTO) 69.6 % (40.0-70.0); PLATELET COUNT (AUTO) 182 K/uL (130-430); RED BLOOD CELL COUNT(AUTO) 4.75 MIL/uL (4.2-6.2); RED CELL DISTRIBUTION WIDTH 14.4 % (9.0-15.0); WHITE BLOOD COUNT (AUTO) 5.1 K/uL (4.8-10.8)
[2023-09-25] MEDS: ENOXAPARIN SODIUM 40 MG/0.4 ML SYRINGE SUBCUT SCH (09:12)
[2023-09-25] MEDS: CITALOPRAM HYDROBROMIDE 20 MG TABLET PO SCH (09:13)
[2023-09-25] MEDS: ASCORBIC ACID 500 MG TABLET PO SCH ×2 (09:13→21:41)
[2023-09-25] MEDS: ATORVASTATIN 20 MG TABLET PO SCH (09:14)
[2023-09-25] MEDS: FAMOTIDINE 20 MG TABLET PO SCH ×2 (09:14→21:41)
[2023-09-25] MEDS: CHOLECALCIFEROL (VITAMIN D3) 2,000 UNIT TABLET PO SCH (10:32)
[2023-09-25 11:09] VITALS: O2SAT 98
[2023-09-25] MEDS ORDERED: cefTRIAXone 1 GM in D5W 50 ML IV ONE (15:30)
[2023-09-25 16:28] VITALS: O2SAT 96
[2023-09-25] MEDS: DEXAMETHASONE SOD PHOSPHATE 10 MG/ML VIAL IVP SCH (16:48)
[2023-09-25 22:31] VITALS: O2SAT 93
[2023-09-25 23:40] VITALS: O2SAT 93
[2023-09-26] VITALS (8 sets, daily range): BP systolic 101–135; PULSE 74–75; RESP 18–20; TEMP 97.1–98.6; O2SAT 93–97
[2023-09-26] MEDS: HYDROcodone/ACETAMIN 5-325 MG TAB (NORCO/ VICODIN) PO PRN ×2 (00:55→21:36)
[2023-09-26] MEDS: IPRATROPIUM BROM 0.5 MG/2.5 ML VIAL.NEB (ATROVENT) INH SCH ×6 (03:32→23:00)
[2023-09-26 08:03] LABS: BASOPHILS % (AUTO) 0.1 % (0.0-2.0); HEMATOCRIT 41.7 % (36-48); HEMOGLOBIN 14.1 g/dL (12.0-16.0); LYMPHOCYTES # (AUTO) 0.8 K/uL (1.0-5.5); LYMPHOCYTES % (AUTO) 23.1 % (20.5-51.5); MEAN CORPUSCULAR HEMOGLOBIN 28 pg (27-31); MEAN CORPUSCULAR HGB CONC 34 % (32-36); MEAN CORPUSCULAR VOLUME 82 fL (79.0-98.0); MONOCYTES # (AUTO) 0.5 K/uL (0.0-1.0); MONOCYTES % (AUTO) 15.5 % (1.7-9.3); NEUTROPHILS # (AUTO) 2.1 K/uL (1.8-7.7); NEUTROPHILS % (AUTO) 61.3 % (40.0-70.0); PLATELET COUNT (AUTO) 201 K/uL (130-430); RED BLOOD CELL COUNT(AUTO) 5.09 MIL/uL (4.2-6.2); RED CELL DISTRIBUTION WIDTH 14.7 % (9.0-15.0)
[2023-09-26 08:30] LABS: ALBUMIN 3.3 g/dL (3.4-4.8); CALCIUM 8.8 mg/dL (8.4-11.0); CREATININE 0.6 mg/dL (0.55-1.30); TOTAL BILIRUBIN 0.2 mg/dL (0.0-1.0)
[2023-09-26 08:46] LABS: WHITE BLOOD COUNT (AUTO) 3.5 K/uL (4.8-10.8)
[2023-09-26] MEDS: FAMOTIDINE 20 MG TABLET PO SCH ×2 (10:00→21:36)
[2023-09-26] MEDS: ATORVASTATIN 20 MG TABLET PO SCH (10:01)
[2023-09-26] MEDS: CITALOPRAM HYDROBROMIDE 20 MG TABLET PO SCH (10:01)
[2023-09-26] MEDS: CHOLECALCIFEROL (VITAMIN D3) 2,000 UNIT TABLET PO SCH (10:01)
[2023-09-26] MEDS: ENOXAPARIN SODIUM 40 MG/0.4 ML SYRINGE SUBCUT SCH (10:01)
[2023-09-26] MEDS: ASCORBIC ACID 500 MG TABLET PO SCH ×2 (10:01→21:36)
[2023-09-26] MEDS: DEXAMETHASONE SOD PHOSPHATE 10 MG/ML VIAL IVP SCH (16:08)
[2023-09-26] MEDS: cefTRIAXone 1 GM in D5W 50 ML IV SCH (17:24)
[2023-09-27] VITALS (12 sets, daily range): BP systolic 109–138; PULSE 70–84; RESP 16–18; TEMP 97.5–98.4; O2SAT 96–100
[2023-09-27] MEDS: IPRATROPIUM BROM 0.5 MG/2.5 ML VIAL.NEB (ATROVENT) INH SCH ×6 (03:00→23:00)
[2023-09-27 07:09] LABS: BASOPHILS % (AUTO) 0.1 % (0.0-2.0); HEMATOCRIT 39.1 % (36-48); HEMOGLOBIN 13.2 g/dL (12.0-16.0); LYMPHOCYTES # (AUTO) 1.1 K/uL (1.0-5.5); LYMPHOCYTES % (AUTO) 32.3 % (20.5-51.5); MEAN CORPUSCULAR HEMOGLOBIN 28 pg (27-31); MEAN CORPUSCULAR HGB CONC 34 % (32-36); MEAN CORPUSCULAR VOLUME 81 fL (79.0-98.0); MONOCYTES # (AUTO) 0.5 K/uL (0.0-1.0); MONOCYTES % (AUTO) 13.8 % (1.7-9.3); NEUTROPHILS # (AUTO) 1.8 K/uL (1.8-7.7); NEUTROPHILS % (AUTO) 53.8 % (40.0-70.0); PLATELET COUNT (AUTO) 209 K/uL (130-430); RED BLOOD CELL COUNT(AUTO) 4.81 MIL/uL (4.2-6.2); RED CELL DISTRIBUTION WIDTH 14.2 % (9.0-15.0); WHITE BLOOD COUNT (AUTO) 3.3 K/uL (4.8-10.8)
[2023-09-27 07:57] LABS: CALCIUM 8.5 mg/dL (8.4-11.0); CREATININE 0.49 mg/dL (0.55-1.30); TOTAL BILIRUBIN 0.2 mg/dL (0.0-1.0); TOTAL PROTEIN, SERUM 6.6 g/dL (6.4-8.3)
[2023-09-27] MEDS: ENOXAPARIN SODIUM 40 MG/0.4 ML SYRINGE SUBCUT SCH (09:56)
[2023-09-27] MEDS: CITALOPRAM HYDROBROMIDE 20 MG TABLET PO SCH (09:56)
[2023-09-27] MEDS: FAMOTIDINE 20 MG TABLET PO SCH ×2 (09:56→22:24)
[2023-09-27] MEDS: ASCORBIC ACID 500 MG TABLET PO SCH ×2 (09:56→22:24)
[2023-09-27] MEDS: ATORVASTATIN 20 MG TABLET PO SCH (09:56)
[2023-09-27] MEDS: CHOLECALCIFEROL (VITAMIN D3) 2,000 UNIT TABLET PO SCH (09:56)
[2023-09-27] MEDS ORDERED: iohexoL 350 mgI/mL, 100 ML INFUS..BTL IV ONE (13:06)
[2023-09-27] MEDS: DEXAMETHASONE SOD PHOSPHATE 10 MG/ML VIAL IVP SCH (14:51)
[2023-09-27] MEDS: cefTRIAXone 1 GM in D5W 50 ML IV SCH (17:32)
[2023-09-27] MEDS ORDERED: COMMUNICATION ORDER XX ONE (22:00)
[2023-09-28] VITALS (10 sets, daily range): BP systolic 109–131; PULSE 64–76; RESP 16–20; TEMP 96.9–97.6; O2SAT 94–100
[2023-09-28] MEDS: IPRATROPIUM BROM 0.5 MG/2.5 ML VIAL.NEB (ATROVENT) INH SCH ×6 (03:00→23:00)
[2023-09-28 05:03] LABS: BASOPHILS % (AUTO) 0.1 % (0.0-2.0); EOSINOPHILS % (AUTO) 0.1 % (0.0-4.0); HEMOGLOBIN 12.9 g/dL (12.0-16.0); MEAN CORPUSCULAR HEMOGLOBIN 27 pg (27-31); MEAN CORPUSCULAR HGB CONC 33 % (32-36); MEAN CORPUSCULAR VOLUME 81 fL (79.0-98.0); MONOCYTES # (AUTO) 0.4 K/uL (0.0-1.0); NEUTROPHILS # (AUTO) 1.8 K/uL (1.8-7.7); NEUTROPHILS % (AUTO) 55.8 % (40.0-70.0); PLATELET COUNT (AUTO) 227 K/uL (130-430); RED BLOOD CELL COUNT(AUTO) 4.81 MIL/uL (4.2-6.2); RED CELL DISTRIBUTION WIDTH 14.3 % (9.0-15.0); WHITE BLOOD COUNT (AUTO) 3.1 K/uL (4.8-10.8)
[2023-09-28 05:17] LABS: CALCIUM 8.8 mg/dL (8.4-11.0); CREATININE 0.53 mg/dL (0.55-1.30)
[2023-09-28] MEDS: ASCORBIC ACID 500 MG TABLET PO SCH ×2 (08:40→21:06)
[2023-09-28] MEDS: CHOLECALCIFEROL (VITAMIN D3) 2,000 UNIT TABLET PO SCH (08:40)
[2023-09-28] MEDS: CITALOPRAM HYDROBROMIDE 20 MG TABLET PO SCH (08:40)
[2023-09-28] MEDS: FAMOTIDINE 20 MG TABLET PO SCH ×2 (08:40→21:06)
[2023-09-28] MEDS: ATORVASTATIN 20 MG TABLET PO SCH (08:40)
[2023-09-28] MEDS: ENOXAPARIN SODIUM 40 MG/0.4 ML SYRINGE SUBCUT SCH (08:40)
[2023-09-28] MEDS ORDERED: P-EPHED SUL/LORATADINE 1 EACH TAB.SR.12H PO ONE (10:15)
[2023-09-28] MEDS: DEXAMETHASONE SOD PHOSPHATE 10 MG/ML VIAL IVP SCH (18:57)
[2023-09-28] MEDS: cefTRIAXone 1 GM in D5W 50 ML IV SCH (18:58)
[2023-09-28] MEDS: P-EPHED SUL/LORATADINE 1 EACH TAB.SR.12H PO SCH (21:08)
[2023-09-29] VITALS (9 sets, daily range): BP systolic 116–121; PULSE 73–78; RESP 17–19; TEMP 97.9–98.6; O2SAT 96–100
[2023-09-29] MEDS: IPRATROPIUM BROM 0.5 MG/2.5 ML VIAL.NEB (ATROVENT) INH SCH ×4 (03:00→15:23)
[2023-09-29 04:36] LABS: BASOPHILS % (AUTO) 0.2 % (0.0-2.0); EOSINOPHILS % (AUTO) 0.1 % (0.0-4.0); HEMATOCRIT 40.3 % (36-48); HEMOGLOBIN 13.6 g/dL (12.0-16.0); LYMPHOCYTES # (AUTO) 0.7 K/uL (1.0-5.5); LYMPHOCYTES % (AUTO) 17.5 % (20.5-51.5); MEAN CORPUSCULAR HEMOGLOBIN 27 pg (27-31); MEAN CORPUSCULAR HGB CONC 34 % (32-36); MEAN CORPUSCULAR VOLUME 81 fL (79.0-98.0); MONOCYTES # (AUTO) 0.2 K/uL (0.0-1.0); MONOCYTES % (AUTO) 3.7 % (1.7-9.3); NEUTROPHILS # (AUTO) 3.2 K/uL (1.8-7.7); NEUTROPHILS % (AUTO) 78.5 % (40.0-70.0); PLATELET COUNT (AUTO) 224 K/uL (130-430); RED BLOOD CELL COUNT(AUTO) 4.98 MIL/uL (4.2-6.2); RED CELL DISTRIBUTION WIDTH 14.2 % (9.0-15.0); WHITE BLOOD COUNT (AUTO) 4.1 K/uL (4.8-10.8)
[2023-09-29 05:13] LABS: ALBUMIN 3.2 g/dL (3.4-4.8); CALCIUM 8.6 mg/dL (8.4-11.0); CREATININE 0.61 mg/dL (0.55-1.30); POTASSIUM 4.5 mmol/L (3.5-5.1); TOTAL BILIRUBIN 0.2 mg/dL (0.0-1.0); TOTAL PROTEIN, SERUM 6.9 g/dL (6.4-8.3)
[2023-09-29] MEDS: ASCORBIC ACID 500 MG TABLET PO SCH (10:43)
[2023-09-29] MEDS: CITALOPRAM HYDROBROMIDE 20 MG TABLET PO SCH (10:43)
[2023-09-29] MEDS: ATORVASTATIN 20 MG TABLET PO SCH (10:43)
[2023-09-29] MEDS: CHOLECALCIFEROL (VITAMIN D3) 2,000 UNIT TABLET PO SCH (10:43)
[2023-09-29] MEDS: FAMOTIDINE 20 MG TABLET PO SCH (10:43)
[2023-09-29] MEDS: P-EPHED SUL/LORATADINE 1 EACH TAB.SR.12H PO SCH (10:44)
[2023-09-29] MEDS: ENOXAPARIN SODIUM 40 MG/0.4 ML SYRINGE SUBCUT SCH (10:44)
[2023-09-29] MEDS: DEXAMETHASONE SOD PHOSPHATE 10 MG/ML VIAL IVP SCH ×2 (16:03→16:09)
[2023-09-29] MEDS ORDERED: ASC500 PO (16:36)
[2023-09-29] MEDS ORDERED: CEPH-548 PO (16:36)
== END 2023-09-29 18:18 | DRG 177 ==
LOC: SED 10:02 → SMU 13:57 → STU 09-26 15:00 → SMU 09-26 17:05
PROVIDERS: ADMIT Family Medicine; ATTEND Family Medicine
PROC: XW033E5 Introduction of Remdesivir Anti-infective into Peripheral Vein, Percutaneous Approach, New Technology Group 5 (ICD-10-PCS; principal; 2023-09-28)
DX: U07.1 COVID-19 (principal); J12.82 Pneumonia due to coronavirus disease 2019; J96.01 Acute respiratory failure with hypoxia; N39.0 Urinary tract infection, site not specified; G35 Multiple sclerosis; E66.9 Obesity, unspecified; E78.5 Hyperlipidemia, unspecified; M06.9 Rheumatoid arthritis, unspecified; Z79.2 Long term (current) use of antibiotics; Z79.899 Other long term (current) drug therapy; Z99.3 Dependence on wheelchair; Z68.39 Body mass index [BMI] 39.0-39.9, adult; Z74.01 Bed confinement status
CPT/HCPCS: 36415; 71045; 71275; 76376; 80048; 80053; 81000; 81001; 81015; 83037; 83880; 84436; 84443; 84484; 85025; 85379; 87086; 93005; 94640; 94760; 96360; 96372; 97110-GO; 97112-GP; 97116-GP; 97530-GO; 97530-GP; 99285; J0696; J1100; J1650; J7050; J7060; Q9967